=== PATIENT | female | born 1995 | race Caucasian/White ===

== ENCOUNTER → 2024-06-26 15:27 | Outpatient (CLI) | payer OTHER, SELFPAY ==
--- NOTE | 2024-06-26 15:30 | DI.US.S_ITS ---
PROCEDURE: US OB <= 14 WEEKS FETUS INDICATIONS: Dating and viability OUTSIDE/PRIOR DATING DATA: Last menstrual period (LMP): 04/18/2024. LMP-based estimated date of delivery (MIRZA): 01/23/2025. First dating scan (date and location): 06/26/2024. Estimated date of delivery (MIRZA) from first dating scan: 01/20/2025. The calculations are made using the ultrasound MIRZA of 01/20/2025. TECHNIQUE: Real-time scanning was performed of the fetus and maternal pelvic organs, with image documentation. COMPARISON: None. FINDINGS: Embryo: Single intrauterine gestation with crown-rump length of 3.3 cm corresponding to estimated gestational age of 10 weeks, 2 days. Heart rate: 168 beats per minute Maternal organs: Right ovary is unremarkable. Left ovary is not well visualized. Cervical length is 3.4 cm. IMPRESSION: Single intrauterine gestation with estimated gestational age of 10 weeks, 2 days based on crown-rump length. Approved by: Susanne Ruby M.D.,Ph.D. on 06/27/2024 at 4:04
== END ==
PROVIDERS: Referring Provider Obstetrics & Gynecology; Visit Provider Obstetrics & Gynecology
DX: Z34.01 Encounter for supervision of normal first pregnancy, first trimester (principal); Z3A.10 10 weeks gestation of pregnancy
CPT/HCPCS: 76801